=== PATIENT | female | born 1955 | race Caucasian/White ===

== ENCOUNTER 2017-07-13 19:30 | Emergency (ER) | payer BC ==
[2017-07-13] MEDS ORDERED: HYDROcodone/Acetaminophen 10/325 mg Tablet ONE (20:06)
[2017-07-13] MEDS ORDERED: Amoxicillin/Potassium Clav 875 MG TAB ONE (20:07)
[2017-07-13] MEDS ORDERED: cloNIDine 0.1 MG TAB ONE (20:07)
== END 2017-07-13 20:13 | disposition home or self-care (01) ==
LOC: MADERS 19:30
DX: J02.9 Acute pharyngitis, unspecified (principal); K02.9 Dental caries, unspecified; G43.909 Migraine, unspecified, not intractable, without status migrainosus; E78.5 Hyperlipidemia, unspecified; I10 Essential (primary) hypertension; F17.210 Nicotine dependence, cigarettes, uncomplicated
CPT/HCPCS: 99283

== ENCOUNTER 2018-06-04 17:12 | Emergency (ER) | payer BC ==
[~2018-06-04 17:12] MED LIST: Sodium Chloride Irrig Solution 250 ML BOT ONE
[2018-06-04 18:04] LABS: #Basophils 0.1 thou/uL (0.0-0.2); #Eosinphils 0.1 thou/uL (0.0-0.7); #Lymphocytes 0.9 thou/uL (1.20-3.40); #Monocytes 0.6 thou/uL (0.11-0.59); #Neutrophils 9.8 thou/uL (1.40-6.50); %Basophils 0.8 % (0.0-1.0); %Eosinophils 0.9 % (0.0-10.0); %Lymphocytes 7.7 % (21.0-51.0); %Monocytes 5.2 % (0.0-10.0); %Neutrophils 85.4 % (42.0-75.0); Hemoglobin 9.8 g/dL (12.0-16.0); Mean Corpuscular HGB CONC 32.4 g/dL (32.0-36.0); Mean Corpuscular Hemoglobin 28.9 pg (27.0-31.0); Mean Corpuscular Volume 89.3 fL (78.0-98.0); Mean Platelet Volume 5.4 fL (7.4-10.4); Platelet Count 491 thou/uL (130-400); RBC Distribution Width 13.3 % (11.5-14.5); Red Blood Cell (RBC) Count 3.39 mill/uL (4.20-5.40); White Blood Cell (WBC) Count 11.5 thou/uL (4.8-10.8)
--- NOTE | 2018-06-04 18:07 | RAD ---
PORTABLE CHEST: 06/04/18 HISTORY: Injury. Chest pain. Heart size is within normal limits. There is some atherosclerotic changes of the aorta. Lungs are tammi ar of any infiltrates. No fracture is identified. IMPRESSION: No acute findings. POS: ANGE
[2018-06-04 18:16] LABS: ALT (SGPT) 10 U/L (8-55); AST (SGOT) 16 U/L (5-34); Albumin 3.5 g/dL (3.4-4.8); Alkaline Phosphatase 156 U/L (40-150); Anion Gap 17 mmol/L (10-20); BUN (Urea Nitrogen) 19 mg/dL (9.8-20.1); Bilirubin, Total 0.2 mg/dL (0.2-1.2); Calc. Creatinine Clearance 0 mL/min (70-130); Carbon Dioxide 21 mmol/L (23-31); Chloride 95 mmol/L (98-107); Estimated GFR-MDRD 27; Globulin 3.4 g/dL (2.4-3.5); Glucose 111 mg/dL (80-115); Potassium 4.9 mmol/L (3.5-5.1); Protein, Total 6.9 g/dL (6.0-8.3); Sodium 128 mmol/L (136-145)
[2018-06-04 18:32] LABS: Bilirubin Negative (Negative); Blood, Urine Negative (Negative); Clarity Clear (Clear); Glucose, Urine (Dipstick) Negative (Negative); Leukocyte Negative (Negative); Nitrite Negative (Negative); Protein, Urine (Dipstick) Negative (Neg-Trace); Urobilinogen 0.2 mg/dL (0.2-1.0); pH, Urine 5.5 (5.0-9.0)
[2018-06-04 18:37] LABS: Specific Gravity, Urine 1.006 (1.002-1.036)
--- NOTE | 2018-06-04 18:38 | CT ---
CT OF BRAIN PERFORMED WITHOUT CONTRAST ENHANCEMENT: 06/04/18 HISTORY: Head injury. There is moderate atrophy present. There is pronounced decreased attenuation of the periventricular w jass matter consistent with some chronic ischemic white matter change. No signs of intracerebral hemo rrhage or extra-axial fluid collections. Mastoid air cells and visualized sinuses are clear. IMPRESSION: No acute intracranial abnormalities. POS: ANGE
--- NOTE | 2018-06-04 18:53 | CT ---
CT OF CERVICAL SPINE PERFORMED WITHOUT CONTRAST ENHANCEMENT: 06/04/18 HISTORY: Neck injury. Vertebral bodies are normal in height. Disc spaces are all relatively well preserved. Facets are in n ormal alignment. Fairly minimal arthritic changes are seen. No canal or foraminal stenosis. There is no CT evidence for fracture. Carotid bulb calcifications are noted. Lung apices are clear. IMPRESSION: No CT evidence of fracture of the cervical spine. POS: ANGE
[2018-06-04] MEDS ORDERED: Sodium Chloride 0.9% 500 ML ONE (19:24)
[2018-06-04] MEDS ORDERED: Adacel (T-DAP) 0.5 ML SYRINGE ONE (20:11)
== END 2018-06-04 20:50 | disposition home or self-care (01) ==
LOC: MADERS 17:12
DX: E86.0 Dehydration (principal); E87.1 Hypo-osmolality and hyponatremia; E78.5 Hyperlipidemia, unspecified; I10 Essential (primary) hypertension; G43.909 Migraine, unspecified, not intractable, without status migrainosus; F17.210 Nicotine dependence, cigarettes, uncomplicated; Z79.899 Other long term (current) drug therapy; W01.0XXA Fall on same level from slipping, tripping and stumbling without subsequent striking against object, initial encounter
CPT/HCPCS: 36415; 70450; 71045; 72125; 80053; 81003; 85025; 90471; 90715; 96360; J7050